=== PATIENT | female | born 1960 | race Caucasian/White ===

== ENCOUNTER → 2021-07-03 | Day surgery (SDC) | payer MEDICARE ==
[~2021-07-03] VITALS: Ht 167.6 cm; Wt 62.1 kg
[~2021-07-03] MED LIST: OXYCODONE IR 5MG5 MG PO; PROZAC20 MG PO; SEROQUEL 25MG T25 MG PO; TRELEGY ELLIPT1 EACH INH; VENTOLIN HFA IN18 GM INH; VITAMIN D325 MC1 PO
== END | disposition home or self-care (01) ==
LOC: FAS 09:51
DX: C34.91 Malignant neoplasm of unspecified part of right bronchus or lung (principal); J44.9 Chronic obstructive pulmonary disease, unspecified; Z90.710 Acquired absence of both cervix and uterus; Z72.89 Other problems related to lifestyle
CPT/HCPCS: 71045; 76000; 93005; C1788; J0690; J1644; J2250; J2405; J2704; J3010; J7120